=== PATIENT | female | born 1985 | race Caucasian/White ===

== ENCOUNTER → 2019-01-05 | Outpatient (CLI) | payer BC | LOC: LAB SHORT 11:53 → PLD 11:53 | DX: N87.1 Moderate cervical dysplasia (principal) | CPT/HCPCS: 88305 ==

== ENCOUNTER → 2019-03-10 | Outpatient (CLI) | payer BC ==
[2019-03-16 11:07] LABS: ESTRADIOL 130.3 pg/mL (.); ESTRONE, SERUM 110 pg/mL (.)
== END | disposition home or self-care (01) ==
LOC: LAB SHORT 18:07 → LAB 18:07 → EDSTATUS 03-10 15:25 → LAB FUT 03-10 15:25
DX: E28.2 Polycystic ovarian syndrome (principal); L65.9 Nonscarring hair loss, unspecified
CPT/HCPCS: 82671; 83036; 84443